=== PATIENT | female | born 1985 | race Caucasian/White ===

== ENCOUNTER 2021-12-08 14:01 | Emergency (ER) | payer OTHER, SELFPAY ==
[2021-12-08 14:16] VITALS: BP 159/91; PULSE 99; RESP 16; TEMP 36.3; O2SAT 100; BMI 26.6
--- NOTE | 2021-12-08 14:20 | DI.RAD.S_ITS ---
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 COMPARISON: None. FINDINGS: Bones: No fractures or dislocations. No suspicious bony lesions. Soft tissues: No suspicious soft tissue calcifications. Soft tissue laceration, tip of 4th finger. No radiopaque foreign body. IMPRESSION: No evidence of acute bony abnormality of the right 4th finger. Laceration. No evidence of radiopaque foreign body. Dictated by: Jac Venegas M.D. on 12/08/2021 at 14:53 Approved by: Jac Venegas M.D. on 12/08/2021 at 14:54
[2021-12-08] MEDS: TET,DIPH,PERTUSS(ACELL),VAC/PF 0.5 ML SYRINGE IM (17:26)
[2021-12-08] MEDS: LIDOCAINE 1% (PF) 2 ML (17:29)
--- NOTE | 2021-12-08 17:45 | PC.NURSE ---
Irrigated wound with normal saline, pt tolerated well.
--- NOTE | 2021-12-08 17:56 | ED_ITS ---
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 Tetanus is not up-to-date. Denies any numbness or active bleeding. Related Data Allergies Allergy/AdvReac Type Severity Reaction Status Date / Time Penicillins Allergy Verified 12/08/21 14:20 Review of Systems <REBEKAH Jarvis Last Filed: 12/08/21 18:19> Review of Systems Narrative: GENERAL: Denies chills, fatigue, malaise, fever, sweats. HEENT: Denies sinus pain, ear pain, sore throat, difficulty swallowing, dizziness. RESPIRATORY: Denies dyspnea, cough, wheezing, hemoptysis, sputum. CARDIOVASCULAR: Denies chest pain, palpitations, orthopnea, edema, GASTROINTESTINAL: Denies nausea, vomiting, abdominal pain, diarrhea, consti pation, melena. : Denies dysuria, frequency, incontinence, hematuria, urinary retention. MUSCULOSKELETAL: denies weakness, joint pain, or bony pain SKIN: Laceration to right 4th finger NEUROLOGIC: Denies weakness, headache, numbness, change in speech, confusion, seizures, incoordination. PSYCHIATRIC: No concerning psychosocial issues. 12 point review of systems is negative except for those stated above Patient History <Heladio Pizarro PA-C - Last Filed: 12/08/21 18:19> Social History Smoking Status: Current every day smoker Smoking Status: Current every day smoker Substance Use Type: does not use Exam <REBEKAH Jarvis Last Filed: 12/08/21 18:19> Narrative Exam Narrative: GENERAL: Well-developed patient, in mild distress. HEAD: Atraumatic. Normocephalic. EYES: Pupils equal round and reactive. Extraocular motions intact. No scleral icterus. No injection or drainage. ENT: Nose without bleeding, purulent drainage. Throat without erythema, tonsillar hypertrophy or exudate. Airway patent. NECK: Trachea midline. Non tender CARDIOVASCULAR: Regular rate and rhythm without murmurs, gallops, or rubs. RESPIRATORY: Clear to auscultation. Breath sounds equal bilaterally. No wheezes, rales, or rhonchi. GASTROINTESTINAL: Abdomen soft, non-tender, nondistended. EXTREMITIES: No edema or joint tenderness. BACK: Nontender without deformity or crepitance. No flank tenderness. NEURO: AOx3. SKIN: Approximately 2 cm laceration to the distal tip of the right 4th finger. No active bleeding. Initial Vital Signs Initial Vital Signs: Vital Signs Temperature 97.3 F L 12/08/21 14:16 Pulse Rate 99 H 12/08/21 14:16 Respiratory Rate 16 12/08/21 14:16 Blood Pressure 159/91 H 12/08/21 14:16 Pulse Oximetry 100 12/08/21 14:16 Oxygen Delivery Method 12/08/21 14:16 <Marques Ann MD - Last Filed: 12/21/21 22:25> Initial Vital Signs Initial Vital Signs: Vital Signs Temperature 97.3 F L 12/08/21 14:16 Pulse Rate 99 H 12/08/21 14:16 Respiratory Rate 16 12/08/21 14:16 Blood Pressure 159/91 H 12/08/21 14:16 Pulse Oximetry 100 12/08/21 14:16 Oxygen Delivery Method 12/08/21 14:16 Procedures <Heladio Pizarro PA-C - Last Filed: 12/08/21 18:19> Laceration Repair Laceration 1: Time of procedure: 17:58 Site: hand Side (If applicable): right Size (cm): 2 Description: linear Depth: simple, single layer Local Anesthetic: lidocaine 1% Amount of anesthesia used (mL): 4 Pre-repair: irrigated extensively Skin layer closed with: nylon Skin layer suture size: 5-0 Number of sutures: 4 Technique: simple, interrupted Course <Heladio Pizarro PA-C - Last Filed: 12/08/21 18:19> Orders Ordered: Discontinued Medications Diphtheria/Tetanus/Acell Pertussis (Tet,Diph,Pertuss(Acell),Vac/Pf 0.5 Ml Syringe) 0.5 ml IM .ONCE ONE Stop: 12/08/21 17:06 Last Admin: 12/08/21 17:26 Dose: 0.5 ml Documented By: AT Lidocaine HCl (Lidocaine 1% 20 Ml) 20 ml INJ INTRA-OP ONE Stop: 12/08/21 17:06 Last Admin: 12/08/21 17:17 Dose: Not Given Documented By: AT Vital Signs Vital signs: Vital Signs - 8 hr 12/08/21 14:16 Temperature 97.3 F L Pulse Rate 99 H Respiratory Rate 16 Blood Pressure 159/91 H Pulse Oximetry 100 Oxygen Delivery Method Room Air <Marques Ann MD - Last Filed: 12/21/21 22:25> Orders Ordered: Discontinued Medications Diphtheria/Tetanus/Acell Pertussis (Tet,Diph,Pertuss(Acell),Vac/Pf 0.5 Ml Syringe) 0.5 ml IM .ONCE ONE Stop: 12/08/21 17:06 Last Admin: 12/08/21 17:26 Dose: 0.5 ml Documented By: AT Lidocaine HCl (Lidocaine 1% 20 Ml) 20 ml INJ INTRA-OP ONE Stop: 12/08/21 17:06 Last Admin: 12/08/21 17:17 Dose: Not Given Documented By: AT Vital Signs Vital signs: Vital Signs - 8 hr 12/08/21 14:16 Temperature 97.3 F L Pulse Rate 99 H Respiratory Rate 16 Blood Pressure 159/91 H Pulse Oximetry 100 Oxygen Delivery Method Room Air MDM - Extremity Injury (Upper) <Heladio Pizarro PA-C - Last Filed: 12/08/21 18:19> Imaging Data Extremity x-ray #1: Radiologist's Impression: [address] [id number] ReportSigned Patient: Danyell Simental [facility]#: [id number]: [id number]:[id number]/Sex: 36 / FDate of Service: 12/08/21Loc: EDAccession Number: [id number] Procedure: XR finger RT min 2V Ordering Provider: Marques Ann MD PROCEDURE: XR FINGER RT MIN 2V 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 COMPARISON: None. FINDINGS: Bones: No fractures or dislocations. No suspicious bony lesions. Soft tissues: No suspicious soft tissue calcifications. Soft tissue laceration, tip of 4th finger. No radiopaque foreign body. IMPRESSION: No evidence of acute bony abnormality of the right 4th finger. Laceration. No evidence of radiopaque foreign body. Dictated by: Jac Venegas M.D. on 12/08/2021 at 14:53 Approved by: Jac Venegas M.D. on 12/08/2021 at 14:54 [facility] Narrative Medical decision making narrative: This is a 36 year the emergency department due to right finger laceration. X- ray showed no evidence of any fractures. Laceration closed without complications. Tetanus updated. Due to the nature of the wound antibiotics will be prescribed in the event that it becomes infected. Discharge Plan Departure Patient Disposition: Home Clinical Impression: Laceration Instructions: DI for Suture Removal Activity Restrictions/Additional Instructions: Thank you for coming to the [facility] Emergency Department today. I am glad that we are able to close up the wound. Please only taking antibiotics if it appears to become infected with redness, purulent discharge. Please follow-up with your primary care provider or urgent care for suture removal in approximately 7-10 days. I hope you feel better soon. Visit Report Forms: Patient Portal/API <Marques Ann MD - Last Filed: 12/21/21 22:25> Cosign ED Attending Cosignature Attestation: I was immediately available in the department for consultation. ?This documentation has been reviewed and I agree with assessment and plan. Supervised by Marques Ann MD
== END 2021-12-08 18:30 | disposition home or self-care (01) ==
PROVIDERS: Emergency Provider Physician Assistant Medical
DX: S61.214A Laceration without foreign body of right ring finger without damage to nail, initial encounter (principal); W31.82XA Contact with other commercial machinery, initial encounter; Y99.0 Civilian activity done for income or pay; Z23 Encounter for immunization
CPT/HCPCS: 12001; 73140; 90471; 99283; 99284; 90715